=== PATIENT | female | born 1965 | race African-American/Black ===

== ENCOUNTER 2021-05-18 | Emergency (ER) | END 2021-05-18 23:45 | disposition home or self-care (01) ==

== ENCOUNTER 2021-07-07 08:44 | Inpatient (IN) | payer OTHER, SELFPAY ==
[2021-07-07 09:19] LABS: #Basophils 0.1 thou/uL (0.0-0.2); #Eosinphils 0.2 thou/uL (0.0-0.7); #Lymphocytes 1.7 thou/uL (1.20-3.40); #Monocytes 0.5 thou/uL (0.11-0.59); #Neutrophils 2.7 thou/uL (1.40-6.50); %Basophils 1.2 % (0.0-1.0); %Eosinophils 3.8 % (0.0-10.0); %Lymphocytes 32.4 % (21.0-51.0); %Neutrophils 52.6 % (42.0-75.0); Mean Corpuscular HGB CONC 33.8 g/dL (32.0-36.0); Mean Corpuscular Hemoglobin 33.6 pg (27.0-31.0); Mean Corpuscular Volume 99.5 fL (78.0-98.0); Mean Platelet Volume 7.6 fL (7.4-10.4); Platelet Count 258 thou/uL (130-400); RBC Distribution Width 11.4 % (11.5-14.5); Red Blood Cell (RBC) Count 4.17 mill/uL (4.20-5.40); White Blood Cell (WBC) Count 5.1 thou/uL (4.8-10.8)
[2021-07-07 09:32] LABS: INR-International Normal Ratio 1.1; Prothrombin Time 13.8 sec (12.0-14.7)
[2021-07-07 09:33] LABS: PTT 31.4 sec (22.9-36.1)
[2021-07-07 09:41] LABS: ALT (SGPT) 64 U/L (8-55); AST (SGOT) 41 U/L (5-34); Albumin 3.9 g/dL (3.5-5.0); Alkaline Phosphatase 77 U/L (40-110); Anion Gap 10 mmol/L (10-20); BUN (Urea Nitrogen) 13 mg/dL (9.8-20.1); Bilirubin, Total 0.7 mg/dL (0.2-1.2); CK (CPK) 169 U/L (29-168); Calc. Creatinine Clearance 0 mL/min (70-130); Calcium 9.2 mg/dL (7.8-10.44); Carbon Dioxide 26 mmol/L (22-29); Chloride 107 mmol/L (98-107); Globulin 3.7 g/dL (2.4-3.5); Glucose 90 mg/dL (70-105); Potassium 4.1 mmol/L (3.5-5.1); Protein, Total 7.6 g/dL (6.0-8.3); Sodium 139 mmol/L (136-145)
[2021-07-07 10:07] LABS: CKMB 3.2 ng/mL (0-6.6)
[2021-07-07] MEDS ORDERED: Aspirin Chewable 81 MG TAB ONE (11:09)
[2021-07-07] MEDS ORDERED: hydrALAZINE 20 MG/ML VIAL SLOW IVP PRN (12:23)
[2021-07-07] MEDS ORDERED: Ondansetron PF 4 MG/2 ML Vial IVP PRN (12:32)
[2021-07-07] MEDS ORDERED: Ondansetron ODT 4 MG TAB PO PRN (12:32)
[2021-07-07] MEDS ORDERED: Acetaminophen 650 MG Suppository PR PRN (12:32)
[2021-07-07 12:49] LABS: Troponin I 0.032 ng/mL (< 0.028)
[2021-07-07 13:01] LABS: #Basophils 0.1 thou/uL (0.0-0.2); #Eosinphils 0.1 thou/uL (0.0-0.7); #Lymphocytes 2.2 thou/uL (1.20-3.40); #Monocytes 0.6 thou/uL (0.11-0.59); #Neutrophils 3.2 thou/uL (1.40-6.50); %Basophils 0.9 % (0.0-1.0); %Eosinophils 2.3 % (0.0-10.0); %Lymphocytes 35.8 % (21.0-51.0); Hemoglobin 13.8 g/dL (12.0-16.0); Mean Corpuscular HGB CONC 33.3 g/dL (32.0-36.0); Mean Corpuscular Hemoglobin 33.8 pg (27.0-31.0); Mean Platelet Volume 7.7 fL (7.4-10.4); Platelet Count 241 thou/uL (130-400); RBC Distribution Width 11.4 % (11.5-14.5); Red Blood Cell (RBC) Count 4.07 mill/uL (4.20-5.40); White Blood Cell (WBC) Count 6.1 thou/uL (4.8-10.8)
[2021-07-07] MEDS: Sodium Chloride 0.9% 1,000 ML IV SCH (15:23)
[2021-07-07 15:38] LABS: Troponin I 0.036 ng/mL (< 0.028)
[2021-07-07] MEDS: Nicotine 14 MG PATCH TD SCH (15:40)
[2021-07-07 17:17] LABS: Bilirubin Negative (Negative); Blood, Urine Negative (Negative); Clarity Turbid (Clear); Glucose, Urine (Dipstick) Normal (Negative); Ketone, Urine Negative (Negative); Leukocyte 75 Leu/uL (Negative); Nitrite Negative (Negative); Protein, Urine (Dipstick) Negative (Neg-Trace); RBC/HPF 0-3 HPF (0-3); Specific Gravity, Urine 1.015 (1.002-1.036); Squamous Epithelial 0-3 HPF (0-3); Urobilinogen Normal mg/dL (Less than 2); WBC/HPF 0-3 HPF (0-3)
[2021-07-07 17:19] LABS: Amphetamine Not Detected (NotDetected); Bacteria/HPF 1+ HPF (None Seen); Barbiturates Screen Not Detected (NotDetected); Benzodiazepine Screen Not Detected (NotDetected); Cocaine Metabolite Screen Detected (NotDetected); Methadone Not Detected (NotDetected); Methamphetamine Not Detected (NotDetected); Opiate Screen Not Detected (NotDetected); Oxycodone Screen Not Detected (NotDetected); Phencyclidine (PCP) Not Detected (NotDetected); THC/Cannabinoid Screen Not Detected (NotDetected); Tricyclic Screen Not Detected (NotDetected)
[2021-07-07 18:48] VITALS: BMI 20.5
[2021-07-08] MEDS: Sodium Chloride 0.9% 1,000 ML IV SCH ×2 (02:05→14:54)
[2021-07-08 06:08] LABS: Anion Gap 11 mmol/L (10-20); BUN (Urea Nitrogen) 14 mg/dL (9.8-20.1); Calc. Creatinine Clearance 63 mL/min (70-130); Calcium 8.4 mg/dL (7.8-10.44); Carbon Dioxide 23 mmol/L (22-29); Chloride 110 mmol/L (98-107); Cholesterol 168 mg/dl (< 200 Desired); Glucose 98 mg/dL (70-105); HDL Cholesterol 56 mg/dL (>60 Neg Risk); LDL Cholesterol, Calculated 100 mg/dL; Potassium 4.1 mmol/L (3.5-5.1); Sodium 140 mmol/L (136-145); Triglycerides 61 mg/dL (Less than 150)
[2021-07-08] MEDS ORDERED: Lorazepam 2 MG/ML VIAL SLOW IVP SCH ×2 (08:15)
[2021-07-08] MEDS: Acetaminophen 325 MG TAB PO PRN (08:47)
[2021-07-08] MEDS: Clopidogrel Bisulfate 75 MG TAB PO SCH (09:45)
[2021-07-08] MEDS: Aspirin Chewable 81 MG TAB PO SCH (09:45)
[2021-07-08] MEDS: Nicotine 14 MG PATCH TD SCH (11:53)
[2021-07-08] MEDS ORDERED: Lisinopril 20 MG TAB PO SCH (16:15)
[2021-07-08] MEDS: Carvedilol 3.125 MG TAB PO SCH (16:42)
[2021-07-08] MEDS: Amlodipine 5 MG TAB PO SCH (19:23)
[2021-07-08 20:10] LABS: SARS-CoV-2 PCR NAA for Saliva Not Detected (NotDetected)
[2021-07-08] MEDS ORDERED: Atorvastatin Calcium 40 MG TAB PO SCH (21:00)
[2021-07-09 05:19] LABS: #Eosinphils 0.2 thou/uL (0.0-0.7); #Lymphocytes 1.9 thou/uL (1.20-3.40); #Monocytes 0.4 thou/uL (0.11-0.59); #Neutrophils 2.4 thou/uL (1.40-6.50); %Basophils 0.9 % (0.0-1.0); %Eosinophils 4.2 % (0.0-10.0); %Lymphocytes 38.1 % (21.0-51.0); %Monocytes 8.7 % (0.0-10.0); Hemoglobin 13.7 g/dL (12.0-16.0); Mean Corpuscular HGB CONC 34.6 g/dL (32.0-36.0); Mean Corpuscular Hemoglobin 33.9 pg (27.0-31.0); Mean Platelet Volume 8.3 fL (7.4-10.4); Platelet Count 226 thou/uL (130-400); RBC Distribution Width 11.3 % (11.5-14.5); Red Blood Cell (RBC) Count 4.03 mill/uL (4.20-5.40); White Blood Cell (WBC) Count 5.1 thou/uL (4.8-10.8)
[2021-07-09 05:35] LABS: ALT (SGPT) 37 U/L (8-55); AST (SGOT) 21 U/L (5-34); Albumin 3.7 g/dL (3.5-5.0); Alkaline Phosphatase 81 U/L (40-110); Anion Gap 12 mmol/L (10-20); BUN (Urea Nitrogen) 11 mg/dL (9.8-20.1); Bilirubin, Total 0.4 mg/dL (0.2-1.2); Calc. Creatinine Clearance 63 mL/min (70-130); Calcium 9.1 mg/dL (7.8-10.44); Carbon Dioxide 22 mmol/L (22-29); Chloride 109 mmol/L (98-107); Globulin 3.6 g/dL (2.4-3.5); Glucose 104 mg/dL (70-105); Protein, Total 7.3 g/dL (6.0-8.3); Sodium 139 mmol/L (136-145)
[2021-07-09] MEDS: Clopidogrel Bisulfate 75 MG TAB PO SCH (08:32)
[2021-07-09] MEDS: Lisinopril 20 MG TAB PO SCH (08:33)
[2021-07-09] MEDS: Carvedilol 3.125 MG TAB PO SCH ×2 (08:33→15:45)
[2021-07-09] MEDS: Aspirin Chewable 81 MG TAB PO SCH (08:33)
[2021-07-09] MEDS: Nicotine 14 MG PATCH TD SCH (15:47)
[2021-07-09] MEDS: Rosuvastatin 20 MG TAB PO SCH (20:37)
[2021-07-09] MEDS: Amlodipine 5 MG TAB PO SCH (20:38)
[2021-07-10] MEDS: Lisinopril 20 MG TAB PO SCH (08:24)
[2021-07-10] MEDS: Aspirin Chewable 81 MG TAB PO SCH (08:24)
[2021-07-10] MEDS: Clopidogrel Bisulfate 75 MG TAB PO SCH (08:24)
[2021-07-10] MEDS: Carvedilol 3.125 MG TAB PO SCH ×2 (08:24→16:13)
[2021-07-10] MEDS ORDERED: Iopamidol-370 76% 500 ML 1 ML ONE (12:22)
[2021-07-10] MEDS ORDERED: Polyethylene Glycol 3350 17 GM Packet PO PRN (12:26)
[2021-07-10] MEDS: diphenhydrAMINE 25 MG CAP PO SCH ×2 (12:58→13:06)
[2021-07-10] MEDS: Nicotine 14 MG PATCH TD SCH (12:59)
[2021-07-10] MEDS: hydrALAZINE 25 MG TAB PO SCH ×2 (15:03→20:27)
[2021-07-10] MEDS: Docusate 100 MG CAP PO SCH (20:27)
[2021-07-10] MEDS: Rosuvastatin 20 MG TAB PO SCH (20:27)
[2021-07-11] MEDS: Carvedilol 3.125 MG TAB PO SCH ×2 (09:19→16:50)
[2021-07-11] MEDS: Aspirin Chewable 81 MG TAB PO SCH (09:20)
[2021-07-11] MEDS: Clopidogrel Bisulfate 75 MG TAB PO SCH (09:21)
[2021-07-11] MEDS: Docusate 100 MG CAP PO SCH ×2 (09:23→21:59)
[2021-07-11] MEDS: hydrALAZINE 25 MG TAB PO SCH ×3 (09:25→21:59)
[2021-07-11] MEDS: Amlodipine 10 MG TAB PO SCH (11:02)
[2021-07-11] MEDS: Nicotine 14 MG PATCH TD SCH (13:52)
[2021-07-11] MEDS: Rosuvastatin 20 MG TAB PO SCH (21:59)
[2021-07-12] MEDS ORDERED: PROPOFOL 20 ML ONE (08:23)
[2021-07-12] MEDS ORDERED: Fentanyl 100 MCG/2 ML VIAL ONE (08:23)
[2021-07-12] MEDS ORDERED: PROPOFOL 200 MG/20 ML VIAL ONE (08:35)
[2021-07-12] MEDS: Docusate 100 MG CAP PO SCH ×2 (10:58→21:38)
[2021-07-12] MEDS: Amlodipine 10 MG TAB PO SCH (10:58)
[2021-07-12] MEDS: Aspirin Chewable 81 MG TAB PO SCH (10:58)
[2021-07-12] MEDS: Clopidogrel Bisulfate 75 MG TAB PO SCH (10:59)
[2021-07-12] MEDS: hydrALAZINE 25 MG TAB PO SCH ×3 (10:59→21:38)
[2021-07-12] MEDS ORDERED: Chloraseptic Spray 180 ml Bottle PO PRN (12:13)
[2021-07-12] MEDS: Carvedilol 3.125 MG TAB PO SCH ×3 (14:08→17:26)
[2021-07-12] MEDS: Nicotine 14 MG PATCH TD SCH (15:17)
[2021-07-12] MEDS: Acetaminophen 325 MG TAB PO PRN ×2 (17:19→21:38)
[2021-07-12] MEDS: Rosuvastatin 20 MG TAB PO SCH (21:37)
[2021-07-12 22:51] LABS: Bacteria/HPF 1+ HPF (None Seen); Bilirubin Negative (Negative); Blood, Urine Negative (Negative); Clarity Clear (Clear); Glucose, Urine (Dipstick) Normal (Negative); Ketone, Urine Negative (Negative); Leukocyte 250 Leu/uL (Negative); Nitrite Negative (Negative); Protein, Urine (Dipstick) Negative (Neg-Trace); Specific Gravity, Urine 1.019 (1.002-1.036); Urobilinogen Normal mg/dL (Less than 2)
[2021-07-12 22:53] LABS: Urine Culture Reflex No No
[2021-07-13 08:52] LABS: #Eosinphils 0.2 thou/uL (0.0-0.7); #Lymphocytes 1.5 thou/uL (1.20-3.40); #Monocytes 0.4 thou/uL (0.11-0.59); #Neutrophils 3.2 thou/uL (1.40-6.50); %Basophils 0.9 % (0.0-1.0); %Eosinophils 3.4 % (0.0-10.0); %Lymphocytes 28.1 % (21.0-51.0); %Monocytes 7.2 % (0.0-10.0); %Neutrophils 60.4 % (42.0-75.0); Hemoglobin 14.3 g/dL (12.0-16.0); Mean Corpuscular HGB CONC 33.2 g/dL (32.0-36.0); Mean Corpuscular Hemoglobin 32.6 pg (27.0-31.0); Mean Corpuscular Volume 98.1 fL (78.0-98.0); Mean Platelet Volume 7.7 fL (7.4-10.4); Platelet Count 252 thou/uL (130-400); RBC Distribution Width 11.4 % (11.5-14.5); White Blood Cell (WBC) Count 5.4 thou/uL (4.8-10.8)
[2021-07-13 09:01] LABS: Anion Gap 14 mmol/L (10-20); BUN (Urea Nitrogen) 17 mg/dL (9.8-20.1); Calc. Creatinine Clearance 62 mL/min (70-130); Calcium 9.2 mg/dL (7.8-10.44); Carbon Dioxide 24 mmol/L (22-29); Chloride 106 mmol/L (98-107); Glucose 101 mg/dL (70-105); Potassium 4.3 mmol/L (3.5-5.1); Sodium 140 mmol/L (136-145)
[2021-07-13] MEDS: Carvedilol 3.125 MG TAB PO SCH ×2 (09:04→16:36)
[2021-07-13] MEDS: Amlodipine 10 MG TAB PO SCH (09:04)
[2021-07-13] MEDS: Clopidogrel Bisulfate 75 MG TAB PO SCH (09:04)
[2021-07-13] MEDS: Docusate 100 MG CAP PO SCH ×2 (09:04→21:14)
[2021-07-13] MEDS: hydrALAZINE 25 MG TAB PO SCH ×3 (09:04→21:11)
[2021-07-13] MEDS: Aspirin Chewable 81 MG TAB PO SCH (09:04)
[2021-07-13] MEDS: Acetaminophen 325 MG TAB PO PRN ×2 (09:07→18:27)
[2021-07-13] MEDS: Nicotine 14 MG PATCH TD SCH (14:05)
[2021-07-13] MEDS: Rosuvastatin 20 MG TAB PO SCH (21:10)
[2021-07-14] MEDS: Docusate 100 MG CAP PO SCH ×2 (08:48→20:49)
[2021-07-14] MEDS: hydrALAZINE 25 MG TAB PO SCH ×3 (08:48→20:00)
[2021-07-14] MEDS: Carvedilol 3.125 MG TAB PO SCH ×2 (08:48→15:45)
[2021-07-14] MEDS: Aspirin Chewable 81 MG TAB PO SCH (08:48)
[2021-07-14] MEDS: Clopidogrel Bisulfate 75 MG TAB PO SCH (08:49)
[2021-07-14] MEDS: Amlodipine 10 MG TAB PO SCH (08:49)
[2021-07-14] MEDS: Nicotine 14 MG PATCH TD SCH (13:00)
[2021-07-14] MEDS: Acetaminophen 325 MG TAB PO PRN ×2 (16:25→20:59)
[2021-07-14] MEDS: Rosuvastatin 20 MG TAB PO SCH (20:50)
[2021-07-15 04:00] VITALS: TEMP 98.3
[2021-07-15] MEDS: Amlodipine 10 MG TAB PO SCH (09:20)
[2021-07-15] MEDS: Aspirin Chewable 81 MG TAB PO SCH (09:21)
[2021-07-15] MEDS: Clopidogrel Bisulfate 75 MG TAB PO SCH (09:21)
[2021-07-15] MEDS: Docusate 100 MG CAP PO SCH (09:21)
[2021-07-15] MEDS: hydrALAZINE 25 MG TAB PO SCH ×2 (09:21→14:40)
[2021-07-15] MEDS: Acetaminophen 325 MG TAB PO PRN ×2 (09:28→14:39)
[2021-07-15] MEDS: Carvedilol 3.125 MG TAB PO SCH (10:20)
[2021-07-15] MEDS: Nicotine 14 MG PATCH TD SCH (14:30)
[2021-07-15 14:43] VITALS: BP 116/73
== END 2021-07-15 15:45 | DRG 65 ==
LOC: ERS 08:44 → SUATTDRO 08:44 → 3SE 11:47
PROVIDERS: ADMIT Internal Medicine; ATTEND Internal Medicine
PROC: B24BZZ4 Ultrasonography of Heart with Aorta, Transesophageal (ICD-10-PCS; principal; 2021-07-12)
DX: I63.81 Other cerebral infarction due to occlusion or stenosis of small artery (principal); G81.91 Hemiplegia, unspecified affecting right dominant side; Z20.822 Contact with and (suspected) exposure to COVID-19; R47.01 Aphasia; I10 Essential (primary) hypertension; E78.5 Hyperlipidemia, unspecified; R74.01 Elevation of levels of liver transaminase levels; R29.810 Facial weakness; I25.10 Atherosclerotic heart disease of native coronary artery without angina pectoris; F17.210 Nicotine dependence, cigarettes, uncomplicated; R29.706 NIHSS score 6; G93.89 Other specified disorders of brain; R47.81 Slurred speech; K59.00 Constipation, unspecified; Z79.899 Other long term (current) drug therapy; Z79.82 Long term (current) use of aspirin; Z95.5 Presence of coronary angioplasty implant and graft
CPT/HCPCS: 36415; 70450; 70491; 70551; 71045; 71275; 80048; 80053; 80061; 80306; 81001; 82550; 82553; 84484; 85025; 85610; 85730; 93005; 93306; 93312; 93880; 95712; 95819; 95957; J0360; J2060; J2704; J3010; J7050; Q9967; U0002; U0003; U0005

== ENCOUNTER 2021-07-16 11:13 | Inpatient (IN) | payer OTHER, SELFPAY ==
[2021-07-16] MEDS ORDERED: Amlodipine 5 MG TAB ONE (11:43)
[2021-07-16] MEDS ORDERED: Acetaminophen 500 MG TAB ONE (11:43)
[2021-07-16] MEDS ORDERED: hydrALAZINE 25 MG TAB ONE (11:45)
[2021-07-16] MEDS ORDERED: Carvedilol 3.125 MG TAB PO SCH (12:00)
[2021-07-16] MEDS ORDERED: Ondansetron PF 4 MG/2 ML Vial IVP PRN (18:27)
[2021-07-16] MEDS ORDERED: HYDROcodone/Acetaminophen 7.5/325 mg Tablet PO PRN (18:27)
[2021-07-16] MEDS ORDERED: HYDROcodone/Acetaminophen 5/325 mg Tablet PO PRN (18:27)
[2021-07-16] MEDS ORDERED: Bisacodyl 5 MG TAB PO PRN (18:27)
[2021-07-16] MEDS ORDERED: hydrALAZINE 20 MG/ML VIAL SLOW IVP PRN (18:38)
[2021-07-16] MEDS: Nicotine 14 MG PATCH TD SCH (20:41)
[2021-07-16] MEDS: hydrALAZINE 25 MG TAB PO SCH (20:53)
[2021-07-16] MEDS: Acetaminophen 325 MG TAB PO PRN (20:54)
[2021-07-16] MEDS: Rosuvastatin 20 MG TAB PO SCH (20:54)
[2021-07-16] MEDS: Senokot S 8.6-50 MG TAB PO PRN (21:08)
[2021-07-16 22:59] VITALS: BMI 21.7
[2021-07-17] MEDS: Acetaminophen 325 MG TAB PO PRN ×4 (05:17→22:09)
[2021-07-17 05:44] LABS: #Eosinphils 0.2 thou/uL (0.0-0.7); #Lymphocytes 2.1 thou/uL (1.20-3.40); #Monocytes 0.6 thou/uL (0.11-0.59); #Neutrophils 3.2 thou/uL (1.40-6.50); %Basophils 0.7 % (0.0-1.0); %Eosinophils 3.5 % (0.0-10.0); %Lymphocytes 33.5 % (21.0-51.0); %Monocytes 9.8 % (0.0-10.0); %Neutrophils 52.6 % (42.0-75.0); Hemoglobin 13.6 g/dL (12.0-16.0); Mean Corpuscular HGB CONC 33.2 g/dL (32.0-36.0); Mean Corpuscular Hemoglobin 32.7 pg (27.0-31.0); Mean Corpuscular Volume 98.6 fL (78.0-98.0); Mean Platelet Volume 7.4 fL (7.4-10.4); Platelet Count 243 thou/uL (130-400); RBC Distribution Width 11.3 % (11.5-14.5); Red Blood Cell (RBC) Count 4.16 mill/uL (4.20-5.40); White Blood Cell (WBC) Count 6.1 thou/uL (4.8-10.8)
[2021-07-17 06:12] LABS: Anion Gap 12 mmol/L (10-20); BUN (Urea Nitrogen) 16 mg/dL (9.8-20.1); Calc. Creatinine Clearance 67 mL/min (70-130); Calcium 9.6 mg/dL (7.8-10.44); Carbon Dioxide 25 mmol/L (22-29); Chloride 103 mmol/L (98-107); Glucose 103 mg/dL (70-105); Sodium 136 mmol/L (136-145)
[2021-07-17] MEDS: Clopidogrel Bisulfate 75 MG TAB PO SCH (09:10)
[2021-07-17] MEDS: Aspirin Chewable 81 MG TAB PO SCH (09:10)
[2021-07-17] MEDS: Carvedilol 3.125 MG TAB PO SCH ×2 (10:11→16:35)
[2021-07-17] MEDS: hydrALAZINE 25 MG TAB PO SCH ×3 (10:12→20:08)
[2021-07-17] MEDS: Amlodipine 10 MG TAB PO SCH (10:12)
[2021-07-17] MEDS: Nicotine 14 MG PATCH TD SCH (16:37)
[2021-07-17 16:49] LABS: SARS-CoV-2 PCR by NAA Not Detected (NotDetected)
[2021-07-17] MEDS: Rosuvastatin 20 MG TAB PO SCH (20:08)
[2021-07-18] MEDS: Carvedilol 3.125 MG TAB PO SCH ×2 (08:06→16:43)
[2021-07-18] MEDS: Clopidogrel Bisulfate 75 MG TAB PO SCH (08:06)
[2021-07-18] MEDS: hydrALAZINE 25 MG TAB PO SCH ×3 (08:06→20:33)
[2021-07-18] MEDS: Amlodipine 10 MG TAB PO SCH (08:06)
[2021-07-18] MEDS: Aspirin Chewable 81 MG TAB PO SCH (08:06)
[2021-07-18] MEDS: Acetaminophen 325 MG TAB PO PRN ×2 (14:56→20:40)
[2021-07-18] MEDS: Nicotine 14 MG PATCH TD SCH (16:44)
[2021-07-18] MEDS: Rosuvastatin 20 MG TAB PO SCH (20:34)
[2021-07-19] MEDS: Amlodipine 10 MG TAB PO SCH (09:17)
[2021-07-19] MEDS: Aspirin Chewable 81 MG TAB PO SCH (09:17)
[2021-07-19] MEDS: hydrALAZINE 25 MG TAB PO SCH ×3 (09:17→20:03)
[2021-07-19] MEDS: Clopidogrel Bisulfate 75 MG TAB PO SCH (09:17)
[2021-07-19] MEDS: Carvedilol 3.125 MG TAB PO SCH ×2 (09:17→17:12)
[2021-07-19] MEDS: Nicotine 14 MG PATCH TD SCH (19:44)
[2021-07-19] MEDS: Acetaminophen 325 MG TAB PO PRN (20:03)
[2021-07-19] MEDS: Rosuvastatin 20 MG TAB PO SCH (20:04)
[2021-07-20] MEDS: Acetaminophen 325 MG TAB PO PRN ×3 (03:26→18:33)
[2021-07-20] MEDS: Amlodipine 10 MG TAB PO SCH (08:28)
[2021-07-20] MEDS: Carvedilol 3.125 MG TAB PO SCH ×2 (08:28→16:46)
[2021-07-20] MEDS: Clopidogrel Bisulfate 75 MG TAB PO SCH (08:29)
[2021-07-20] MEDS: Aspirin Chewable 81 MG TAB PO SCH (08:29)
[2021-07-20] MEDS: hydrALAZINE 25 MG TAB PO SCH ×3 (08:29→20:25)
[2021-07-20] MEDS ORDERED: FLU VACC QS2021-22(6MOS UP)/PF 60 MCG/0.5 ML SYRINGE IM ONE (09:00)
[2021-07-20] MEDS: Nicotine 14 MG PATCH TD SCH (18:29)
[2021-07-20] MEDS: Rosuvastatin 20 MG TAB PO SCH (20:24)
[2021-07-20] MEDS: Senokot S 8.6-50 MG TAB PO PRN (20:31)
[2021-07-21] MEDS: Carvedilol 3.125 MG TAB PO SCH ×2 (08:02→15:33)
[2021-07-21] MEDS: Amlodipine 10 MG TAB PO SCH (08:02)
[2021-07-21] MEDS: Clopidogrel Bisulfate 75 MG TAB PO SCH (08:02)
[2021-07-21] MEDS: hydrALAZINE 25 MG TAB PO SCH ×3 (08:02→20:49)
[2021-07-21] MEDS: Aspirin Chewable 81 MG TAB PO SCH (08:02)
[2021-07-21] MEDS: Acetaminophen 325 MG TAB PO PRN (15:35)
[2021-07-21] MEDS: Nicotine 14 MG PATCH TD SCH (15:38)
[2021-07-21] MEDS: Rosuvastatin 20 MG TAB PO SCH (20:49)
[2021-07-22] MEDS: Aspirin Chewable 81 MG TAB PO SCH (08:20)
[2021-07-22] MEDS: Carvedilol 3.125 MG TAB PO SCH ×2 (08:21→16:05)
[2021-07-22] MEDS: Clopidogrel Bisulfate 75 MG TAB PO SCH (08:22)
[2021-07-22] MEDS: hydrALAZINE 25 MG TAB PO SCH ×3 (08:22→20:46)
[2021-07-22] MEDS: Amlodipine 10 MG TAB PO SCH (08:22)
[2021-07-22] MEDS: Acetaminophen 325 MG TAB PO PRN ×3 (12:22→20:49)
[2021-07-22] MEDS: Nicotine 14 MG PATCH TD SCH (16:07)
[2021-07-22] MEDS: Rosuvastatin 20 MG TAB PO SCH (20:46)
[2021-07-23] MEDS: Aspirin Chewable 81 MG TAB PO SCH (07:40)
[2021-07-23] MEDS: Clopidogrel Bisulfate 75 MG TAB PO SCH (07:40)
[2021-07-23] MEDS: hydrALAZINE 25 MG TAB PO SCH ×3 (07:40→20:49)
[2021-07-23] MEDS: Carvedilol 3.125 MG TAB PO SCH ×2 (07:40→15:49)
[2021-07-23] MEDS: Amlodipine 10 MG TAB PO SCH (07:41)
[2021-07-23] MEDS: Acetaminophen 325 MG TAB PO PRN ×3 (07:47→18:57)
[2021-07-23] MEDS: Nicotine 14 MG PATCH TD SCH (17:59)
[2021-07-23] MEDS: Rosuvastatin 20 MG TAB PO SCH (20:49)
[2021-07-24] MEDS: hydrALAZINE 25 MG TAB PO SCH ×3 (08:54→20:03)
[2021-07-24] MEDS: Aspirin Chewable 81 MG TAB PO SCH (08:54)
[2021-07-24] MEDS: Amlodipine 10 MG TAB PO SCH (08:54)
[2021-07-24] MEDS: Carvedilol 3.125 MG TAB PO SCH ×2 (08:54→15:30)
[2021-07-24] MEDS: Clopidogrel Bisulfate 75 MG TAB PO SCH (08:55)
[2021-07-24] MEDS: Nicotine 14 MG PATCH TD SCH (15:30)
[2021-07-24] MEDS: Acetaminophen 325 MG TAB PO PRN (19:50)
[2021-07-24] MEDS: Rosuvastatin 20 MG TAB PO SCH (20:04)
[2021-07-24 21:43] LABS: SARS-CoV-2 PCR by NAA Not Detected (NotDetected)
[2021-07-25] MEDS: Acetaminophen 325 MG TAB PO PRN ×2 (05:53→12:27)
[2021-07-25] MEDS: Aspirin Chewable 81 MG TAB PO SCH (08:33)
[2021-07-25] MEDS: Clopidogrel Bisulfate 75 MG TAB PO SCH (08:33)
[2021-07-25] MEDS: Carvedilol 3.125 MG TAB PO SCH ×2 (08:33→16:02)
[2021-07-25] MEDS: Amlodipine 10 MG TAB PO SCH (08:33)
[2021-07-25] MEDS: hydrALAZINE 25 MG TAB PO SCH ×3 (08:33→20:42)
[2021-07-25] MEDS: Nicotine 14 MG PATCH TD SCH (16:04)
[2021-07-25] MEDS: Rosuvastatin 20 MG TAB PO SCH (20:42)
[2021-07-26] MEDS: Carvedilol 3.125 MG TAB PO SCH ×2 (08:04→15:59)
[2021-07-26] MEDS: Clopidogrel Bisulfate 75 MG TAB PO SCH (08:04)
[2021-07-26] MEDS: Amlodipine 10 MG TAB PO SCH (08:04)
[2021-07-26] MEDS: Aspirin Chewable 81 MG TAB PO SCH (08:04)
[2021-07-26] MEDS: hydrALAZINE 25 MG TAB PO SCH ×3 (08:05→20:05)
[2021-07-26] MEDS: Nicotine 14 MG PATCH TD SCH (17:19)
[2021-07-26] MEDS: Rosuvastatin 20 MG TAB PO SCH (20:05)
[2021-07-27] MEDS: Acetaminophen 325 MG TAB PO PRN ×4 (08:35→20:45)
[2021-07-27] MEDS: Amlodipine 10 MG TAB PO SCH (08:35)
[2021-07-27] MEDS: Clopidogrel Bisulfate 75 MG TAB PO SCH (08:36)
[2021-07-27] MEDS: Carvedilol 3.125 MG TAB PO SCH ×2 (08:36→17:39)
[2021-07-27] MEDS: hydrALAZINE 25 MG TAB PO SCH ×3 (08:36→20:40)
[2021-07-27] MEDS: Aspirin Chewable 81 MG TAB PO SCH (08:36)
[2021-07-27] MEDS ORDERED: HYDROcodone/Acetaminophen 7.5/325 mg Tablet PO PRN (14:11)
[2021-07-27] MEDS ORDERED: HYDROcodone/Acetaminophen 5/325 mg Tablet PO PRN (14:11)
[2021-07-27] MEDS: Nicotine 14 MG PATCH TD SCH (17:39)
[2021-07-27 19:52] VITALS: TEMP 98.3
[2021-07-27] MEDS: Rosuvastatin 20 MG TAB PO SCH (20:41)
[2021-07-28] MEDS: Clopidogrel Bisulfate 75 MG TAB PO SCH (09:12)
[2021-07-28] MEDS: Acetaminophen 325 MG TAB PO PRN (09:12)
[2021-07-28] MEDS: hydrALAZINE 25 MG TAB PO SCH (09:12)
[2021-07-28] MEDS: Carvedilol 3.125 MG TAB PO SCH (09:12)
[2021-07-28] MEDS: Aspirin Chewable 81 MG TAB PO SCH (09:12)
[2021-07-28] MEDS: Amlodipine 10 MG TAB PO SCH (09:12)
[2021-07-28 09:17] VITALS: BP 131/87
== END 2021-07-28 13:37 | DRG 880 ==
LOC: ERS 11:13 → ERHOLD 15:58 → 3SE 19:13 → OBSVTOIN 07-19 09:53 → T4-A 07-20 17:55
PROVIDERS: ADMIT Family Medicine; ATTEND Internal Medicine
DX: R45.6 Violent behavior (principal); R53.1 Weakness; Z20.822 Contact with and (suspected) exposure to COVID-19; I10 Essential (primary) hypertension; E78.5 Hyperlipidemia, unspecified; I25.10 Atherosclerotic heart disease of native coronary artery without angina pectoris; F14.10 Cocaine abuse, uncomplicated; F17.210 Nicotine dependence, cigarettes, uncomplicated; I25.2 Old myocardial infarction; Z88.8 Allergy status to other drugs, medicaments and biological substances; Z95.5 Presence of coronary angioplasty implant and graft; Z79.82 Long term (current) use of aspirin; Z79.899 Other long term (current) drug therapy; Z86.73 Personal history of transient ischemic attack (TIA), and cerebral infarction without residual deficits
CPT/HCPCS: 36415; 80048; 85025; 99285; G0378; U0003; U0005

== ENCOUNTER 2025-05-17 22:21 | Emergency (ER) | payer OTHER ==
[2025-05-17 23:32] LABS: #Basophils Less than 0.03 10x3/uL (0.0-0.2); #Eosinophils 0.09 10x3/uL (0.0-0.7); #Monocytes 0.44 10x3/uL (0.11-0.59); #Neutrophils 5.20 10x3/uL (1.40-6.50); %Basophils 0.3 % (0.0-1.0); %Eosinophils 1.2 % (0.0-10.0); %Lymphocytes 21.7 % (21.0-51.0); %Monocytes 6.0 % (0.0-10.0); %Neutrophils 70.5 % (42.0-75.0); Hematocrit 42.9 % (36.0-47.0); Hemoglobin 14.1 g/dL (12.0-16.0); Mean Corpuscular Hemoglobin 30.7 pg (27.0-31.0); Mean Corpuscular Volume 93.3 fL (78.0-98.0); Platelet Count 213 10x3/uL (130-400); Red Blood Cell (RBC) Count 4.60 mill/uL (4.20-5.40); White Blood Cell (WBC) Count 7.37 10x3/uL (4.8-10.8)
[2025-05-17 23:46] LABS: ALT (SGPT) 13 U/L (Less than 34); AST (SGOT) 25 U/L (11-34); Albumin 4.3 g/dL (3.1-4.5); Alkaline Phosphatase 89 U/L (40-110); Anion Gap 19 mmol/L (10-20); BUN (Urea Nitrogen) 8 mg/dL (9.8-20.1); Bilirubin, Total 0.4 mg/dL (0.3-1.2); Calc. Creatinine Clearance 0 mL/min (70-130); Calcium 9.1 mg/dL (7.8-10.44); Carbon Dioxide 19 mmol/L (22-29); Chloride 109 mmol/L (98-107); Globulin 4.3 g/dL (2.4-3.5); Glucose 97 mg/dL (70-105); Potassium 3.7 mmol/L (3.5-5.1); Sodium 143 mmol/L (136-145)
[2025-05-17 23:48] LABS: Bacteria/HPF None Seen HPF (None Seen); CAUTI Indications for Culture < 2yrs of age; Glucose, Urine (Dipstick) Normal (Negative); Leukocyte Negative Leu/uL (Negative); Protein, Urine (Dipstick) Negative (Neg-Trace); RBC/HPF 0-3 HPF (0-3); Specific Gravity, Urine 1.002 (1.002-1.036); WBC/HPF 0-3 HPF (0-3)
[2025-05-17 23:57] LABS: Cocaine Metabolite Screen Negative (Negative); THC/Cannabinoid Screen Negative (Negative); Tricyclic Screen Negative (Negative)
[2025-05-18 00:10] LABS: Urine Culture Reflex Yes Yes
[2025-05-18] MEDS ORDERED: Iopamidol 370 76% 100 ML VIAL ONE (13:53)
== END 2025-05-18 02:50 | disposition home or self-care (01) ==
LOC: ERS 22:21
DX: K59.00 Constipation, unspecified (principal); I10 Essential (primary) hypertension; I25.2 Old myocardial infarction; F17.210 Nicotine dependence, cigarettes, uncomplicated; Z79.899 Other long term (current) drug therapy
CPT/HCPCS: 36415; 74177; 80053; 80306; 80307; 81001; 85025; 87086; Q9967